=== PATIENT | male | born 1990 | race Caucasian/White ===

== ENCOUNTER 2018-05-21 04:52 | Emergency (ER) | payer MEDICAID, OTHER ==
[~2018-05-21] VITALS: Ht 165.1 cm; Wt 71.2 kg
[2018-05-21 04:58] VITALS: Ht 165.1 cm; Wt 71.2 kg
[2018-05-21] MEDS ORDERED: SOD CHLORIDE 0.9% 1,000 ML IV STA (05:21)
[2018-05-21] MEDS ORDERED: KETOROLAC 30 MG INJ IV STA (05:33)
--- NOTE | 2018-05-21 05:35 | ERD ---
ER Documentation Chief Complaint Chief Complaint SEIZURE X 1 HR [employer] HPI This is a very pleasant 27-year-old male comes in with seizure prior to arrival. Patient has history of seizures. Takes Keppra. Does not remember he took both doses today. This was a shoulder pain. He has history of chronic multiple episodes of shoulder dislocations. He denies any tongue biting or incontinence. He is currently alert and oriented and mental baseline. ROS All systems reviewed and are negative except as per history of present illness. Allergies Allergies: Coded Allergies: No Known Allergy (Unverified , 05/21/18) PMhx/Soc History of Surgery: No Anesthesia Reaction: No Hx Neurological Disorder: Yes (SEIZURE DISORDER) Hx Respiratory Disorders: No Hx Cardiac Disorders: No Hx Psychiatric Problems: Yes (BIPOLAR, DEPRESSION, ) Hx Miscellaneous Medical Probl: No Hx Alcohol Use: No Hx Substance Use: Yes (MARIJUANA) Hx Tobacco Use: No Smoking Status: Never smoker Physical Exam Vitals Vital Signs Date Temp Pulse Resp B/P (MAP) Pulse Ox O2 O2 Flow FiO2 Time Delivery Rate 05/21/18 98.2 78 18 134/73 100 04:58 (93) Physical Exam Const: No acute distress Head: Atraumatic Eyes: Normal Conjunctiva ENT: Normal External Ears, Nose and Mouth. Neck: Full range of motion. No meningismus. Resp: Clear to auscultation bilaterally Cardio: Regular rate and rhythm, no murmurs Abd: Soft, non tender, non distended. Normal bowel sounds Skin: No petechiae or rashes Back: No midline or flank tenderness Ext: No cyanosis, or edema Neur: Awake and alert Psych: Normal Mood and Affect Results 24 hrs Current Medications Medications Dose Sig/Maynor Start Time Status Last (Trade) Ordered Route PRN Stop Time Admin Dose Reason Admin Sodium 1,000 ml @ Q1H STAT 05/21/18 Chloride 1,000 mls/hr IV 05:21 05/21/18 06:20 Procedures/MDM Medical decision makin-year-old male recurrent seizure. Loaded with Keppra here. No further seizure-like activity witnessed in the emergency department. Clinically stable for trial of outpatient management. Has follow-up outpatient MRI scheduled for this Saturday. Departure Diagnosis: Primary Impression: Seizure disorder Condition: Stable JEANNE DOS SANTOS May 21, 2018 05:35
[2018-05-21 05:53] VITALS: BP 126/79; PULSE 70; RESP 18
[2018-05-21] MEDS ORDERED: LORAZEPAM 2 MG INJ IV ONE (06:00)
== END 2018-05-21 06:27 | disposition home or self-care (01) ==
LOC: E/R 04:52
DX: G40.909 Epilepsy, unspecified, not intractable, without status epilepticus (principal)
CPT/HCPCS: 36415; 80048; 85025; 96361; 96374; 96375; J1885; J2060; J7030; Z7502; Z7610